=== PATIENT | male | born 1975 | race African-American/Black ===

== ENCOUNTER 2018-11-01 09:58 | Emergency (ER) | payer BC ==
[~2018-11-01] VITALS: Ht 177.8 cm; Wt 86.2 kg
[~2018-11-01 09:58] MED LIST: DOXYCYCLINE 10100 MG PO; METHOCARBAMOL500 M2 PO; NAPROSYN500 MG PO; NORCO 5-325 TA1 EACH PO
[2018-11-01] MEDS ORDERED: BACTRIM DS TAB1 EAC1 PO (10:23)
[2018-11-01] MEDS ORDERED: HYDROCODONE-AP1 EAC6 PO (10:57)
[2018-11-01 11:18] VITALS: BP 136/82
== END 2018-11-01 11:19 | disposition home or self-care (01) ==
LOC: ER 09:58
DX: L03.012 Cellulitis of left finger (principal)